=== PATIENT | female | born 1995 | race Caucasian/White ===

== ENCOUNTER 2018-11-18 14:49 | Emergency (ER) | payer BC, MEDICAID ==
[2018-11-18 15:15] VITALS: BP 133/63
--- NOTE | 2018-11-18 15:41 | UC ---
Complaint Female HPI - HPI Summary HPI Summary: B/L flank pain for one month, urinary frequency "all the time", headaches for 2 weeks. Last urologist visit was missed 2 mos. ago - History Of Current Complaint Chief Complaint: UCGU Stated Complaint: HEADACHE, URINARY Time Seen by Provider: 11/18/18 15:02 Hx Obtained From: Patient Hx Last Menstrual Period: 3 months ?: No Onset/Duration: Sudden Onset, Lasting Days Timing: Lasting Days Severity Initially: Moderate Severity Currently: Moderate Pain Intensity: 7 Character: Dull Aggravating Factor(s): Urination - Allergies/Home Medications Allergies/Adverse Reactions: Allergies Allergy/AdvReac Type Severity Reaction Status Date / Time No Known Allergies Allergy Verified 11/18/18 15:16 Home Medications: Home Medications Ibuprofen TAB* [Motrin TAB* 800 MG] 800 mg PO DAILY PRN 11/18/18 [History Confirmed 11/18/18] medroxyPROGESTERone ACETATE* [DEPO-Provera] 150 mg IM SEE INSTRUCTIONS 11/18/18 [History Confirmed 11/18/18] PMH/Surg Hx/FS Hx/Imm Hx Previously Healthy: Yes - Surgical History Surgical History: Yes Surgery Procedure, Year, and Place: T & A, ear tubes - Family History Known Family History: Positive: Hypertension - Social History Alcohol Use: Rare Substance Use Type: Excessive Caffeine Smoking Status (MU): Light Every Day Tobacco Smoker Household Exposure Type: Cigarettes - Immunization History Vaccination Up to Date: Yes Review of Systems All Other Systems Reviewed And Are Negative: Yes Constitutional: Positive: Chills Genitourinary: Positive: Dysuria, Frequency Musculoskeletal: Positive: Myalgia Is Patient Immunocompromised?: No Physical Exam Triage Information Reviewed: Yes Appearance: Well-Nourished, Ill-Appearing, Pain Distress Vital Signs: Initial Vital Signs Temp 100 F 11/18/18 15:08 Pulse 99 11/18/18 15:08 Resp 20 11/18/18 15:08 BP 133/63 11/18/18 15:08 Pulse Ox 100 11/18/18 15:08 Vital Signs Reviewed: Yes Eye Exam: Normal ENT Exam: Normal Dental Exam: Normal Neck exam: Normal Respiratory Exam: Normal Respiratory: Positive: Chest non-tender, Lungs clear, Normal breath sounds Cardiovascular: Positive: No Murmur, Pulses Normal, Tachycardia Abdomen Description: Positive: Nontender, No Organomegaly, Soft, CVA Tenderness (R) - pos, CVA Tenderness (L) - pos Musculoskeletal Exam: Normal Neurological Exam: Normal Psychological Exam: Normal Skin Exam: Normal Complaint Female Dx - Course Course Of Treatment: hx obtained, exam performed ,meds reviewed, Ua was negative but patient has been taking in large amounts of fluids to dilute urine. she has bilateral flank pain and has been treated reently for UTI that did not go away completely. she has had bilateral flank pain , chills and malaise for the past 2 days - Differential Dx/Diagnosis Differential Diagnosis/HQI/PQRI: , Urinary Tract Infection, Other - pyelonephritis Provider Diagnosis: Bilateral flank pain, Chills Discharge - Sign-Out/Discharge Documenting (check all that apply): Patient Departure All imaging exams completed and their final reports reviewed: No Studies - Discharge Plan Condition: Stable Disposition: HOME Prescriptions: Cephalexin CAP* [Keflex CAP*] 500 mg PO TID #21 cap Patient Education Materials: Urinary Tract Infection in Women (DC) Referrals: No Primary Care Phys,NOPCP [Primary Care Provider] - Additional Instructions: 1. take the medication start the first dose before bed tonight. 2. Increas fluids and get plenty of rest 3. Tylenol for pain and fever 4. Follow up if not improving in the next 1-2 days - Billing Disposition and Condition Condition: STABLE Disposition: Home
[2018-11-18] MEDS ORDERED: cefTRIAXone VIAL(*) 1,000 MG VIAL IM ONE (15:44)
[2018-11-18] MEDS ORDERED: Lidocaine 1% MPF* 2 ML VIAL INJ ONE (15:45)
== END 2018-11-18 16:30 | disposition home or self-care (01) ==
LOC: UCCORT 14:49
DX: M54.5 Low back pain (principal); R68.83 Chills (without fever); R35.0 Frequency of micturition; R30.0 Dysuria; Z87.440 Personal history of urinary (tract) infections; F17.210 Nicotine dependence, cigarettes, uncomplicated
CPT/HCPCS: 81003; 84702; 87086; 96372; 99212; G0463; J0696

== ENCOUNTER 2019-01-23 09:10 | Emergency (ER) | payer BC, MEDICAID ==
[2019-01-23 09:30] VITALS: BP 137/57
--- NOTE | 2019-01-23 10:38 | UC ---
Complaint Female HPI - HPI Summary HPI Summary: vaginal bleeding x 5 days + lower abdominal cramping , pain is 6 out of 10, nothing make it better or worse no dysuria, no fever, no chills, no hx of stds was on Depo shots , stopped 2 weeks ago no fever, no chills, no n/v/d/c was seen at the ED , had pelvic US, abd/pelvic CT us should ovarian cyst . bleeding is not improving - History Of Current Complaint Chief Complaint: UCGeneralIllness Stated Complaint: PERSONAL Time Seen by Provider: 01/23/19 09:15 Hx Obtained From: Patient Hx Last Menstrual Period: 2 weeks ago ?: No Onset/Duration: Gradual Onset, Lasting Days - 5, Still Present Timing: Constant Severity Initially: Moderate Severity Currently: Moderate Pain Intensity: 7 Pain Scale Used: 0-10 Numeric Character: Cramping Aggravating Factor(s): Nothing Alleviating Factor(s): Nothing Associated Signs And Symptoms: Positive: Vaginal Bleeding/Discharge. Negative: Fever, Back Pain, Vaginal Discharge, Nausea, Vomiting(# Of Episodes =), Genital Swelling, Genital Blisters, Retained Foregin Body (Specify) - Allergies/Home Medications Allergies/Adverse Reactions: Allergies Allergy/AdvReac Type Severity Reaction Status Date / Time No Known Allergies Allergy Verified 11/18/18 15:16 PMH/Surg Hx/FS Hx/Imm Hx Previously Healthy: Yes - Surgical History Surgical History: Yes Surgery Procedure, Year, and Place: T & A, ear tubes - Family History Known Family History: Positive: Hypertension - Social History Alcohol Use: Rare Substance Use Type: Excessive Caffeine Smoking Status (MU): Former Smoker When Did the Patient Quit Smoking/Using Tobacco: 6 days ago Household Exposure Type: Cigarettes - Immunization History Vaccination Up to Date: Yes Review of Systems All Other Systems Reviewed And Are Negative: Yes Constitutional: Positive: Negative Skin: Positive: Negative Eyes: Positive: Negative ENT: Positive: Negative Respiratory: Positive: Negative Is Patient Immunocompromised?: No Physical Exam Triage Information Reviewed: Yes Appearance: Well-Appearing, No Pain Distress, Well-Nourished Vital Signs: Initial Vital Signs Temp 98.1 F 01/23/19 09:24 Pulse 98 01/23/19 09:24 Resp 17 01/23/19 09:24 BP 137/57 01/23/19 09:24 Pulse Ox 99 01/23/19 09:24 Vital Signs Reviewed: Yes Eye Exam: Normal Eyes: Positive: Conjunctiva Clear ENT: Positive: Normal ENT inspection, Hearing grossly normal, Pharynx normal Neck: Positive: Supple, Nontender, No Lymphadenopathy Respiratory: Positive: Chest non-tender, Lungs clear, Normal breath sounds, No respiratory distress Cardiovascular: Positive: RRR, No Murmur, Pulses Normal Abdominal Exam: Normal Abdomen Description: Positive: Nontender, Soft. Negative: Bruit, CVA Tenderness (R), CVA Tenderness (L), Distended, Guarding UC Physical Exam Vital Signs On Initial Exam: Initial Vitals Temp Pulse Resp BP Pulse Ox 98.1 F 98 17 137/57 99 01/23/19 09:24 01/23/19 09:24 01/23/19 09:24 01/23/19 09:24 01/23/19 09:24 - Genitalia Exam Female Genitourinary: Normal External Exam, Cervix Bleeding Complaint Female Dx - Differential Dx/Diagnosis Provider Diagnosis: Vaginal bleeding Discharge - Sign-Out/Discharge Documenting (check all that apply): Patient Departure All imaging exams completed and their final reports reviewed: No Studies - Discharge Plan Condition: Stable Disposition: HOME Prescriptions: Conjugated Estrogens TAB* [Premarin TAB*] 2.5 mg PO QID #16 tab Patient Education Materials: Dysfunctional Uterine Bleeding (ED) Referrals: Alisha Garland [employer] [Primary Care Provider] - 5 Days - Billing Disposition and Condition Condition: STABLE Disposition: Home
== END 2019-01-23 10:27 | disposition home or self-care (01) ==
LOC: UCCORT 09:10
DX: N93.9 Abnormal uterine and vaginal bleeding, unspecified (principal); Z87.891 Personal history of nicotine dependence
CPT/HCPCS: 81003; 84702; 99212; G0463